=== PATIENT | female | born 1950 | race Caucasian/White ===

== ENCOUNTER 2022-12-20 16:33 | Emergency (ER) | payer OTHER, MEDICAID ==
[~2022-12-20] VITALS: Ht 165.1 cm; Wt 80.0 kg
--- NOTE | 2022-12-20 17:09 | NUR ---
PT STATES " I PULLED UP TO THE MAIL BOX AND PUT THE MAIL AWAY AND THEN I STEPPED OUT WITH MY LEFT FOOT AND PURSE FELL ONTO ACCELERATOR AND THEN I FELL AND MY LEGS GOT RAN OVER." PT CMS INTACT. BILATERAL PEDAL PULSES STRONG.
--- NOTE | 2022-12-20 17:28 | NUR ---
I have reviewed and agree with all interventions, assessments performed and documented by GUN TESTER
[2022-12-20] MEDS ORDERED: HYDROcodone/acetaminophen 5mg/325mg tablet PO ONE (18:30)
[2022-12-20] MEDS ORDERED: NAPR-56 PO (18:42)
--- NOTE | 2022-12-20 19:36 | NUR ---
SPRAY BOOTH OPERATOR AT BEDSIDE.
[2022-12-20 20:00] VITALS: BP 143/70; PULSE 99; RESP 15; TEMP 98.3; O2SAT 98
== END 2022-12-20 20:02 | disposition home or self-care (01) ==
LOC: ER 16:34
DX: S82.492A Other fracture of shaft of left fibula, initial encounter for closed fracture (principal); X58.XXXA Exposure to other specified factors, initial encounter; Y93.89 Activity, other specified; Y92.89 Other specified places as the place of occurrence of the external cause; Y99.8 Other external cause status
CPT/HCPCS: 73564; 73590; 73610; 99284; L4360; A6449